=== PATIENT | female | born 1935 | race Caucasian/White ===

== ENCOUNTER → 2016-12-24 | Outpatient (CLI) | payer MEDICARE ==
[~2016-12-24] MED LIST: AMLO1TAB13 PO; AMLO5TAB2; ASP325T PO; ASP81TEC PO; ATOR20TA66 PO; CITA10TA12 PO; CLOP75TA PO; DCS100C PO; DILT120T3 PO; DOXA4TAB2 PO; FURO40TA4 PO; HYDR-3583 PO; HYDR-3714 PO; ISM30TCR PO; ISM60TCR PO; ISOS120T5 PO; LOSA100T7 PO; LOSA50TA36 PO; LOVA40TA2 PO; MELO-195; MELO-195 PO; MTP100TCR PO; NF-ESOM40C PO; NITR0.3T6 SL; NTR.4SL SL; PNT40TEC PO; SIMV40TA2; SIMV40TA4 PO; TICA90TA PO; TRZ50T PO; VALS1TAB4; ZLP10T; ZLP10T PO
--- NOTE | 2016-12-24 10:46 | Diagnostic Imaging Report ---
INDICATION: Dyspnea PA and lateral views of the chest were obtained. Comparison is made to study of 03/23/2014 FINDINGS: Heart size and pulmonary vascularity are within normal limits, and the lungs are clear, bilaterally. Left coronary artery stent is again noted. Surgical anchor is seen in the right shoulder. IMPRESSION: Unremarkable chest. Dictated by: Dictated on workstation # [id number]
== END ==
LOC: RAD 10:08
PROVIDERS: ATTEND Family Medicine
DX: I20.8 Other forms of angina pectoris (principal)
CPT/HCPCS: 71020

== ENCOUNTER → 2017-11-14 | Outpatient (CLI) | payer MEDICARE ==
--- NOTE | 2017-11-14 09:45 | Diagnostic Imaging Report ---
PROCEDURE: CT abdomen without contrast. TECHNIQUE: Multiple contiguous axial images were obtained through the abdomen without the use of intravenous contrast. INDICATION: Weight loss. Comparison is made with prior CT from 03/23/2014. The lung bases are clear. No discrete liver mass is identified. The gallbladder is surgically absent. The pancreas and spleen are unremarkable. No adrenal mass is detected. Calcification in the lower pole left kidney appears stable. The right kidney is unremarkable. No definite hydronephrosis is seen. Aorta is calcified but nonaneurysmal. The visualized small and large bowel loops in the abdomen are normal caliber. The pelvis was not included on this exam. There is no ascites. Small central retroperitoneal lymph nodes are present, nonspecific. IMPRESSION: Stable noncontrast CT of the abdomen when compared with exam from 03/23/2014. No acute abnormalities detected. Dictated by: Dictated on workstation # [id number]
== END ==
LOC: RAD 08:30
PROVIDERS: ATTEND Family Medicine
DX: E08.8 Diabetes mellitus due to underlying condition with unspecified complications (principal)
CPT/HCPCS: 36415; 74150; 83036